=== PATIENT | male | born 1960 | race Hispanic/Latino ===

== ENCOUNTER 2019-07-31 17:09 | Emergency (ER) | payer MEDICAID, OTHER ==
[2019-07-31] MEDS ORDERED: SODIUM CHLORIDE 0.9% 500 ML 500 ML IV ONE (17:30)
--- NOTE | 2019-07-31 18:09 | XRay Report ---
CHEST 1 VIEW INDICATION: possible Sepsis. COMPARISON: None. FINDINGS: Support devices: Right subclavian port is in expected position. Heart: Normal. Lungs/Pleura: Lungs are hyperlucent consistent with emphysematous change. Ill-defined left suprahilar density is of uncertain chronicity. No significant effusion, no pneumothorax. IMPRESSION: 1. Ill-defined suprahilar left upper lung opacity is nonspecific, this could be due to pneumonia. Rad iographic follow-up is recommended. Signer Name: Juvenal Flower MD Signed: 07/31/2019 6:04 PM Workstation Name: [id number]
[2019-07-31 19:24] LABS: Basophils # (Auto) 0.1 K/mm3 (0.0-0.1); Basophils % (Auto) 0.6 % (0.0-1.8); Eosinophils # (Auto) 0.3 K/mm3 (0.0-0.4); Eosinophils % (Auto) 3.3 % (0.0-4.3); Hematocrit 35.1 % (35.5-45.6); Hemoglobin 11.8 gm/dl (11.8-15.2); Lymphocytes # (Auto) 0.9 K/mm3 (1.2-5.4); Lymphocytes % (Auto) 8.3 % (13.4-35.0); Mean Corpuscular HGB Conc 34 % (32-34); Mean Corpuscular Volume 89 fl (84-94); Monocytes # (Auto) 0.7 K/mm3 (0.0-0.8); Platelet Count 149 K/mm3 (140-440); Red Blood Count 3.95 M/mm3 (3.65-5.03); Red Cell Distribution Width 14.4 % (13.2-15.2)
[2019-07-31 19:39] LABS: INR 1.69 (0.87-1.13)
[2019-07-31 19:43] LABS: Alanine Aminotransferase 13 units/L (7-56); Albumin 3.7 g/dL (3.9-5); BUN/Creatinine Ratio 12; Blood Urea Nitrogen 12 mg/dL (9-20); Calcium 8.9 mg/dL (8.4-10.2); Hemolysis Index 3
[2019-07-31 19:52] LABS: Bacteria,Urine 1+ /HPF (Negative); Bilirubin,Urine NEG (Negative); Blood,Urine SM (Negative); Color,Urine Yellow (Yellow); Hyaline Casts,Urine 19 /LPF; Mucus,Urine 1+ /HPF; Protein,Urine <15 mg/dL mg/dL (Negative); Urobilinogen,Urine < 2.0 mg/dL (<2.0)
[2019-07-31] MEDS ORDERED: POTASSIUM CHLORIDE ER 20 MEQ TAB PO ONE (19:55)
[2019-07-31] MEDS ORDERED: SODIUM CHLORIDE 0.9% 1000 ML 1,000 ML IV ONE (19:55)
--- NOTE | 2019-07-31 20:23 | Emergency Department Report ---
ED Fever HPI - General Chief Complaint: Fever Stated Complaint: FEVER/SHAKING Time Seen by Provider: 07/31/19 19:23 - History of Present Illness Initial Comments: Patient is a 58-year-old male who presents to emergency room with complaints of a subjective fever that began yesterday. He has associated chills, generalized body aches, nausea, shortness of breath, mild cough. Patient denies any rhinorrhea, vomiting, diarrhea, abdominal pain, unilateral lower extremity edema. Patient states he has a past medical history of lung cancer, COPD, A. fib on eliquis, hypertension. Patient uses 3 L of home oxygen. Patient states his lung cancer is in remission and he last had chemotherapy in October 2018 and he last had radiation in May 2018. He did not have any lung surgeries. He denies any sick contacts. ED Review of Systems ROS: Stated complaint: FEVER/SHAKING Other details as noted in HPI Comment: All other systems reviewed and negative ED Past Medical Hx - Past Medical History Hx Hypertension: Yes Hx Deep Vein Thrombosis: Yes Hx COPD: Yes - Surgical History Past Surgical History?: No - Social History Smoking Status: Never Smoker Substance Use Type: None - Medications Home Medications: Home Medications Medication Instructions Recorded Confirmed Last Taken Type Acetaminophen/Codeine [Tylenol 1 tab PO Q6H PRN #10 tab 07/31/19 Unknown Rx /Codeine # 3 tab] levoFLOXacin [Levaquin TAB] 500 mg PO DAILY 7 Days #7 tablet 07/31/19 Unknown Rx ED Physical Exam - General Limitations: No Limitations General appearance: alert, in no apparent distress - Head Head exam: Present: atraumatic, normocephalic - Eye Eye exam: Present: normal appearance - ENT ENT exam: Present: normal orophraynx, mucous membranes dry - Neck Neck exam: Present: full ROM. Absent: meningismus - Respiratory Respiratory exam: Present: normal lung sounds bilaterally. Absent: respiratory distress, wheezes, rales, rhonchi, stridor, chest wall tenderness, accessory muscle use, decreased breath sounds, prolonged expiratory - Cardiovascular Cardiovascular Exam: Present: regular rate, normal rhythm, normal heart sounds. Absent: systolic murmur, diastolic murmur, rubs, gallop - GI/Abdominal GI/Abdominal exam: Present: soft, normal bowel sounds. Absent: distended, tenderness, guarding, rebound, rigid - Back Exam Back exam: Present: normal inspection, full ROM. Absent: paraspinal tenderness, vertebral tenderness - Neurological Exam Neurological exam: Present: alert, oriented X3 - Psychiatric Psychiatric exam: Present: normal affect, normal mood - Skin Skin exam: Present: warm, dry ED Course Vital Signs 07/31/19 07/31/19 17:26 22:49 Temperature 97.8 F 98.6 F Pulse Rate 77 72 Respiratory 16 20 Rate Blood Pressure 108/58 Blood Pressure 107/61 [Right] O2 Sat by Pulse 95 98 Oximetry - Consultations Consultation #1: 07/31/19 22:[address] Adkins, fire support man who recommended admission 07/31/19 22:[address] Zayas, hospitalist who states pt does not meet admission requirements and will not be admitted to the hospital 07/31/19 22:40 Dr. Patel, ER attending evaluated pt at bedside and advised pt is stable for discharge and advised to place pt on levaquin 500 mg daily x 7 days and have pt follow up with his fire support man as an outpatient. ED Medical Decision Making - Lab Data Result diagrams: 07/31/19 18:13 07/31/19 18:13 Lab Results 07/31/19 07/31/19 07/31/19 Range/Units 18:13 18:13 18:13 WBC 10.2 (4.5-11.0) K/mm3 RBC 3.95 (3.65-5.03) M/mm3 Hgb 11.8 (11.8-15.2) gm/dl Hct 35.1 L (35.5-45.6) % MCV 89 (84-94) fl MCH 30 (28-32) pg MCHC 34 (32-34) % RDW 14.4 (13.2-15.2) % Plt Count 149 (140-440) K/mm3 Lymph % (Auto) 8.3 L (13.4-35.0) % [place] % (Auto) 7.0 (0.0-7.3) % Eos % (Auto) 3.3 (0.0-4.3) % Baso % (Auto) 0.6 (0.0-1.8) % Lymph # 0.9 L (1.2-5.4) K/mm3 [place] # 0.7 (0.0-0.8) K/mm3 Eos # 0.3 (0.0-0.4) K/mm3 Baso # 0.1 (0.0-0.1) K/mm3 Seg Neutrophils % 80.8 H (40.0-70.0) % Seg Neutrophils # 8.2 H (1.8-7.7) K/mm3 PT 19.5 H (12.2-14.9) Sec. INR 1.69 H (0.87-1.13) VBG pH (7.320-7.420) Sodium 138 (137-145) mmol/L Potassium 3.0 L (3.6-5.0) mmol/L Chloride 96.5 L (98-107) mmol/L Carbon Dioxide 29 (22-30) mmol/L Anion Gap 16 mmol/L BUN 12 (9-20) mg/dL Creatinine 1.0 (0.8-1.5) mg/dL Estimated GFR > 60 ml/min BUN/Creatinine Ratio 12 % Glucose 103 H (75-100) mg/dL Lactic Acid (0.7-2.0) mmol/L Calcium 8.9 (8.4-10.2) mg/dL Phosphorus (2.5-4.5) mg/dL Magnesium (1.7-2.3) mg/dL Total Bilirubin 0.70 (0.1-1.2) mg/dL AST 22 (5-40) units/L ALT 13 (7-56) units/L Alkaline Phosphatase 108 (35-129) units/L Total Protein 6.9 (6.3-8.2) g/dL Albumin 3.7 L (3.9-5) g/dL Albumin/Globulin Ratio 1.2 % Urine Color (Yellow) Urine Turbidity (Clear) Urine pH (5.0-7.0) Ur Specific [place] (1.003-1.030) Urine Protein (Negative) mg/dL Urine Glucose (UA) (Negative) mg/dL Urine Ketones (Negative) mg/dL Urine Blood (Negative) Urine Nitrite (Negative) Urine Bilirubin (Negative) Urine Urobilinogen (<2.0) mg/dL Ur Leukocyte Esterase (Negative) Urine WBC (Auto) (0.0-6.0) /HPF Urine RBC (Auto) (0.0-6.0) /HPF Urine Bacteria (Auto) (Negative) /HPF Hyaline Casts /LPF Urine Mucus /HPF Influenza A (Rapid) (Negative) Influenza B (Rapid) (Negative) 07/31/19 07/31/19 07/31/19 Range/Units 18:13 18:13 19:37 WBC (4.5-11.0) K/mm3 RBC (3.65-5.03) M/mm3 Hgb (11.8-15.2) gm/dl Hct (35.5-45.6) % MCV (84-94) fl MCH (28-32) pg MCHC (32-34) % RDW (13.2-15.2) % Plt Count (140-440) K/mm3 Lymph % (Auto) (13.4-35.0) % [place] % (Auto) (0.0-7.3) % Eos % (Auto) (0.0-4.3) % Baso % (Auto) (0.0-1.8) % Lymph # (1.2-5.4) K/mm3 [place] # (0.0-0.8) K/mm3 Eos # (0.0-0.4) K/mm3 Baso # (0.0-0.1) K/mm3 Seg Neutrophils % (40.0-70.0) % Seg Neutrophils # (1.8-7.7) K/mm3 PT (12.2-14.9) Sec. INR (0.87-1.13) VBG pH 7.341 (7.320-7.420) Sodium (137-145) mmol/L Potassium (3.6-5.0) mmol/L Chloride (98-107) mmol/L Carbon Dioxide (22-30) mmol/L Anion Gap mmol/L BUN (9-20) mg/dL Creatinine (0.8-1.5) mg/dL Estimated GFR ml/min BUN/Creatinine Ratio % Glucose (75-100) mg/dL Lactic Acid 1.50 (0.7-2.0) mmol/L Calcium (8.4-10.2) mg/dL Phosphorus (2.5-4.5) mg/dL Magnesium (1.7-2.3) mg/dL Total Bilirubin (0.1-1.2) mg/dL AST (5-40) units/L ALT (7-56) units/L Alkaline Phosphatase (35-129) units/L Total Protein (6.3-8.2) g/dL Albumin (3.9-5) g/dL Albumin/Globulin Ratio % Urine Color Yellow (Yellow) Urine Turbidity Clear (Clear) Urine pH 5.0 (5.0-7.0) Ur Specific [place] 1.011 (1.003-1.030) Urine Protein <15 mg/dl (Negative) mg/dL Urine Glucose (UA) Neg (Negative) mg/dL Urine Ketones Neg (Negative) mg/dL Urine Blood Sm (Negative) Urine Nitrite Neg (Negative) Urine Bilirubin Neg (Negative) Urine Urobilinogen < 2.0 (<2.0) mg/dL Ur Leukocyte Esterase Neg (Negative) Urine WBC (Auto) 2.0 (0.0-6.0) /HPF Urine RBC (Auto) 4.0 (0.0-6.0) /HPF Urine Bacteria (Auto) 1+ (Negative) /HPF Hyaline Casts 19 /LPF Urine Mucus 1+ /HPF Influenza A (Rapid) (Negative) Influenza B (Rapid) (Negative) 07/31/19 07/31/19 Range/Units 19:55 Unknown WBC (4.5-11.0) K/mm3 RBC (3.65-5.03) M/mm3 Hgb (11.8-15.2) gm/dl Hct (35.5-45.6) % MCV (84-94) fl MCH (28-32) pg MCHC (32-34) % RDW (13.2-15.2) % Plt Count (140-440) K/mm3 Lymph % (Auto) (13.4-35.0) % [place] % (Auto) (0.0-7.3) % Eos % (Auto) (0.0-4.3) % Baso % (Auto) (0.0-1.8) % Lymph # (1.2-5.4) K/mm3 [place] # (0.0-0.8) K/mm3 Eos # (0.0-0.4) K/mm3 Baso # (0.0-0.1) K/mm3 Seg Neutrophils % (40.0-70.0) % Seg Neutrophils # (1.8-7.7) K/mm3 PT (12.2-14.9) Sec. INR (0.87-1.13) VBG pH (7.320-7.420) Sodium (137-145) mmol/L Potassium (3.6-5.0) mmol/L Chloride (98-107) mmol/L Carbon Dioxide (22-30) mmol/L Anion Gap mmol/L BUN (9-20) mg/dL Creatinine (0.8-1.5) mg/dL Estimated GFR ml/min BUN/Creatinine Ratio % Glucose (75-100) mg/dL Lactic Acid (0.7-2.0) mmol/L Calcium (8.4-10.2) mg/dL Phosphorus 3.40 (2.5-4.5) mg/dL Magnesium 1.40 L (1.7-2.3) mg/dL Total Bilirubin (0.1-1.2) mg/dL AST (5-40) units/L ALT (7-56) units/L Alkaline Phosphatase (35-129) units/L Total Protein (6.3-8.2) g/dL Albumin (3.9-5) g/dL Albumin/Globulin Ratio % Urine Color (Yellow) Urine Turbidity (Clear) Urine pH (5.0-7.0) Ur Specific [place] (1.003-1.030) Urine Protein (Negative) mg/dL Urine Glucose (UA) (Negative) mg/dL Urine Ketones (Negative) mg/dL Urine Blood (Negative) Urine Nitrite (Negative) Urine Bilirubin (Negative) Urine Urobilinogen (<2.0) mg/dL Ur Leukocyte Esterase (Negative) Urine WBC (Auto) (0.0-6.0) /HPF Urine RBC (Auto) (0.0-6.0) /HPF Urine Bacteria (Auto) (Negative) /HPF Hyaline Casts /LPF Urine Mucus /HPF Influenza A (Rapid) Negative (Negative) Influenza B (Rapid) Negative (Negative) - Radiology Data Radiology results: report reviewed CHEST 1 VIEW INDICATION: possible Sepsis. COMPARISON: None. FINDINGS: Support devices: Right subclavian port is in expected position. Heart: Normal. Lungs/Pleura: Lungs are hyperlucent consistent with emphysematous change. Ill- defined left suprahilar density is of uncertain chronicity. No significant effusion, no pneumothorax. IMPRESSION: 1. Ill-defined suprahilar left upper lung opacity is nonspecific, this could be due to pneumonia. Radiographic follow-up is recommended. Signer Name: Juvenal Flower MD Signed: 07/31/2019 6:04 PM Workstation Name: [id number] Transcribed By: ALEXEY Dictated By: Juvenal Flower MD Electronically Authenticated By: Juvenal Flower MD Signed Date/Time: 07/31/191803 CT CHEST WITH CONTRAST INDICATION / CLINICAL INFORMATION: fever, SOB, hx of lung CA. TECHNIQUE: Axial CT images were obtained through the chest after 100 cc Omnipaque [address] scans at this location are performed using CT dose reduction for ALARA by means of automated exposure control. COMPARISON: None available. FINDINGS: HEART: No significant abnormality. THORACIC AORTA: No significant abnormality. MEDIASTINUM and KAVIN: No significant abnormality. LUNGS: Mild pneumonitis and bronchiectasis within the central aspect of left upper lobe and superior aspect of left lower lobes likely secondary to XRT therapy. Probable thick linear scarring left upper lobe, however, neoplasm cannot be excluded measuring 2.9 x 1.0 cm in AP by transverse diameter images 52 and 53. Moderate pulmonary emphysema. Biapical pleural parenchymal scarring. PLEURA: No significant pleural effusion. No pneumothorax. ADDITIONAL FINDINGS: Right internal jugular Port-A-Cath has tip in SVC UPPER ABDOMEN: Several mildly enlarged left periaortic retroperitoneal nodes, incompletely visualized. Moderate hepatic steatosis. Simple 2.5 cm cyst posterior hepatic segment. Small hiatal hernia. SKELETAL SYSTEM: Probable acute T8 compression fracture with fracture line/cleft noted. No skeletal metastases. IMPRESSION: 1. Probable XRT pneumonitis central aspect of left upper and superior segment left lower lobes. 2. Moderate pulmonary emphysema. 3. Left retroperitoneal adenopathy. 4. T8 acute compression fracture. Signer Name: Scott Carreno MD Signed: 07/31/2019 8:45 PM Workstation Name: [id number] Transcribed By: HUGH Dictated By: Scott Carreno MD Electronically Authenticated By: Scott Carreno MD Signed Date/Time: 07/31/192044 - Medical Decision Making Patient is a 58-year-old male who presents to emergency room with complaints of a subjective fever that began yesterday. He has associated chills, generalized body aches, nausea, shortness of breath, mild cough. Patient denies any rhinorrhea, vomiting, diarrhea, abdominal pain, unilateral lower extremity edema. Patient states he has a past medical history of lung cancer, COPD, A. fib on eliquis, hypertension. Patient uses 3 L of home oxygen. Patient states his lung cancer is in remission and he last had chemotherapy in October 2018 and he last had radiation in May 2018. He did not have any lung surgeries. He denies any sick contacts. vitals are normal. lung are clear to auscultation, no w/r/r. pt is afebrile. no leukocytosis on labs. labs significant for hypokalemia and hypomagnesia, both were repleted while in the ED. CXR: 1. Ill-defined suprahilar left upper lung opacity is nonspecific, this could be due to pneumonia. Radiographic follow-up is recommended. CT chest performed and shows 1. Probable XRT pneumonitis central aspect of left upper and superior segment left lower lobes. 2. Moderate pulmonary emphysema. 3. Left retroperit lozano adenopathy. 4. T8 acute compression fracture. discussed all findings with pt and answered all questions. pt given 1L of NS, ceftriaxone, and azithromycin. Discussed case with Dr. Adkins, fire support man who recommended admission. discussed case with Dr. Zayas, hospitalist who states pt does not meet admission requirements and will not be admitted to the hospital. Dr. Patel, ER attending evaluated pt at bedside and advised pt is stable for discharge and advised to place pt on levaquin 500 mg daily x 7 days and have pt follow up with his fire support man as an outpatient. pt given prescription for levaquin and pain medication. advised pt to please take medication as prescribed. Do not drive or operate machinery while taking pain medication. Please follow-up with your fire support man Dr. Adkins and an orthopedic doctor in the next 2-3 days. Return to the emergency room immediately for any new or worsening symptoms. - Differential Diagnosis lung CA, PNA, influenza, COPD, CHF, empyema, URI, bronchitis Critical care attestation.: If time is entered above; I have spent that time in minutes in the direct care of this critically ill patient, excluding procedure time. ED Disposition Clinical Impression: Pneumonitis, Hypokalemia, Hypomagnesemia, Chills, SOB (shortness of breath), Retroperitoneal lymphadenopathy, Community acquired bacterial pneumonia Pulmonary emphysema Qualifiers: Emphysema type: unilateral Qualified Code(s): J43.0 - Unilateral pulmonary emphysema [MacLeod's syndrome] Compression fracture of T8 vertebra Qualifiers: Encounter type: initial encounter Qualified Code(s): S22.060A - Wedge compression fracture of T7-T8 vertebra, initial encounter for closed fracture Disposition: TO HOME OR SELFCARE Is pt being admited?: No Does the pt Need Aspirin: No Condition: Stable Instructions: Vertebral Compression Fracture (ED), Chronic Obstructive Pulmonary Disease (ED), Community-acquired Pneumonia (ED) Additional Instructions: Please take medication as prescribed. Do not drive or operate machinery while taking pain medication. Please follow-up with your fire support man Dr. Adkins and an orthopedic doctor in the next 2-3 days. Return to the emergency room im mediately for any new or worsening symptoms. Prescriptions: levoFLOXacin [Levaquin TAB] 500 mg PO DAILY 7 Days #7 tablet Acetaminophen/Codeine [Tylenol /Codeine # 3 tab] 1 tab PO Q6H PRN #10 tab PRN Reason: Pain , Severe (7-10) Referrals: WOO ADKINS MD [Staff Physician] - 2-[address] [facility] [Provider Group] - 2-3 Days Time of Disposition: 22:49 Print Language: TURKISH
--- NOTE | 2019-07-31 20:49 | Cat Scan Report ---
CT CHEST WITH CONTRAST INDICATION / CLINICAL INFORMATION: fever, SOB, hx of lung CA. TECHNIQUE: Axial CT images were obtained through the chest after 100 cc Omnipaque [address] scans at this location are performed using CT dose reduction for ALARA by means of automated exposure contr ol. COMPARISON: None available. FINDINGS: HEART: No significant abnormality. THORACIC AORTA: No significant abnormality. MEDIASTINUM and KAVIN: No significant abnormality. LUNGS: Mild pneumonitis and bronchiectasis within the central aspect of left upper lobe and superior aspect of left lower lobes likely secondary to XRT therapy. Probable thick linear scarring left upper lobe, however, neoplasm cannot be excluded measuring 2.9 x 1.0 cm in AP by transverse diameter image s 52 and 53. Moderate pulmonary emphysema. Biapical pleural parenchymal scarring. PLEURA: No significant pleural effusion. No pneumothorax. ADDITIONAL FINDINGS: Right internal jugular Port-A-Cath has tip in SVC UPPER ABDOMEN: Several mildly enlarged left periaortic retroperitoneal nodes, incompletely visualized . Moderate hepatic steatosis. Simple 2.5 cm cyst posterior hepatic segment. Small hiatal hernia. SKELETAL SYSTEM: Probable acute T8 compression fracture with fracture line/cleft noted. No skeletal m etastases. IMPRESSION: 1. Probable XRT pneumonitis central aspect of left upper and superior segment left lower lobes. 2. Moderate pulmonary emphysema. 3. Left retroperitoneal adenopathy. 4. T8 acute compression fracture. Signer Name: Scott Carreno MD Signed: 07/31/2019 8:45 PM Workstation Name: [id number]
[2019-07-31] MEDS ORDERED: MAGNESIUM OXIDE 400 MG TAB PO ONE (21:00)
[2019-07-31] MEDS ORDERED: cefTRIAXone/NS 1 GM/50 ML 1 GM/50 ML BAG IV ONE (22:16)
[2019-07-31] MEDS ORDERED: AZITHROMYCIN 250 MG TAB PO ONE (22:16)
[2019-07-31 22:50] VITALS: BP 107/61
[2019-08-01] MEDS ORDERED: MAGNESIUM OXIDE 400 MG TAB PO ONE (21:00)
== END 2019-07-31 23:37 | disposition home or self-care (01) ==
LOC: ED 17:09
DX: S22.060A Wedge compression fracture of T7-T8 vertebra, initial encounter for closed fracture (principal); J43.0 Unilateral pulmonary emphysema [MacLeod's syndrome]; E83.42 Hypomagnesemia; E87.6 Hypokalemia; J15.8 Pneumonia due to other specified bacteria; R59.0 Localized enlarged lymph nodes; I10 Essential (primary) hypertension; Z86.718 Personal history of other venous thrombosis and embolism; Z79.01 Long term (current) use of anticoagulants; Z79.899 Other long term (current) drug therapy; X58.XXXA Exposure to other specified factors, initial encounter; Y93.89 Activity, other specified; Y92.89 Other specified places as the place of occurrence of the external cause; Y99.8 Other external cause status
CPT/HCPCS: 36415; 71045; 71260; 80053; 81001; 82140; 82805; 83735; 84100; 85025; 85610; 87040; 87086; 87400; 96365; 99285; J0696; J7030; Q9967

== ENCOUNTER 2019-08-10 18:31 | Emergency (ER) | payer MEDICAID ==
--- NOTE | 2019-08-10 19:48 | Event Note ---
ED Screening Note Date of service: 08/10/19 Time: 19:48 ED Screening Note: REPORTS CAN[facility]ER [facility] LUNG CANCER AND . CHEMO 11/2018 RADIATION 2019. hAS pcp AND ACCESS TO CARE. lle SWOLLEN AND rt LOWER EXTT SWOLLEN. lt >rt. FEET WITH REDNESS AND PUS. lEGS AND FEET PAINFUL. NOTED FEET WITH FUNGAL INFECTION WITH SUPERINPOSE BACTERIAL INFECTION. onychomycosis NOTED TO TOE NAILS. PALPABLE PULSES.. ble EDEMA LT.L WITH EXZEMA AND MULTIPLE ABRASIONS. This initial assessment/diagnostic orders/clinical plan/treatment(s) is/are subject to change based on patients health status, clinical progression and re- assessment by fellow clinical providers in the ED. Further treatment and workup at subsequent clinical providers discretion. Patient/guardian urged not to elope from the ED as their condition may be serious if not clinically assessed and managed. Initial orders include: XR LABS
--- NOTE | 2019-08-10 21:13 | XRay Report ---
BILATERAL FEET 6 VIEWS TOTAL INDICATION / CLINICAL INFORMATION: INFECTION WITH REDNESS/SWELLING AND DRAINAGE. COMPARISON: None available. FINDINGS: Right foot: Moderate dorsal soft tissue swelling is seen within the right foot without cortical destr uction, ulcer or soft tissue gas to suggest osteomyelitis. Moderate degenerative arthrosis is seen wi thin the first MTP joint. Left foot: Moderate diffuse soft tissue swelling is seen within the left ankle and dorsal aspect of f oot without cortical destruction, soft tissue gas or ulcer to suggest osteomyelitis. Moderate degener ative arthrosis is seen within the first MTP joint and PIP and DIP joints of left foot. Signer Name: Scott Carreno MD Signed: 08/10/2019 9:08 PM Workstation Name: [id number]
[2019-08-10 21:21] LABS: Basophils # (Auto) 0.1 K/mm3 (0.0-0.1); Basophils % (Auto) 0.7 % (0.0-1.8); Eosinophils # (Auto) 1.2 K/mm3 (0.0-0.4); Eosinophils % (Auto) 12.5 % (0.0-4.3); Hemoglobin 12.5 gm/dl (11.8-15.2); Lymphocytes # (Auto) 1.2 K/mm3 (1.2-5.4); Lymphocytes % (Auto) 12.1 % (13.4-35.0); Mean Corpuscular HGB Conc 34 % (32-34); Mean Corpuscular Volume 89 fl (84-94); Monocytes # (Auto) 0.7 K/mm3 (0.0-0.8); Platelet Count 208 K/mm3 (140-440); Red Blood Count 4.17 M/mm3 (3.65-5.03); Red Cell Distribution Width 14.6 % (13.2-15.2)
[2019-08-10 21:44] LABS: Alanine Aminotransferase 11 units/L (7-56); Albumin 3.4 g/dL (3.9-5); BUN/Creatinine Ratio 9; Blood Urea Nitrogen 7 mg/dL (9-20); Hemolysis Index 20
[2019-08-10] MEDS ORDERED: cephALEXin 500 MG CAP PO ONE (22:16)
--- NOTE | 2019-08-10 22:21 | Emergency Department Report ---
HPI - General Chief Complaint: Extremity Injury, Lower Time Seen by Provider: 08/10/19 19:48 - HPI HPI: 58-year-old male presents to the emergency department with a complaint of a two-week history of a rash to the bilateral lower extremities and upper extremities. It is itching and the patient has been scratching himself constantly. He also complains of some redness and a rash to the top of his bilateral feet that have been draining some "white stuff." This also has been going on for the past 2 weeks. He has not taken anything for her symptoms prior to presentation. The patient has bilateral lower extremity swelling with left greater than right. However he has a history of lymphedema and says that this has been going on since 2002. He says that the swelling goes down when he goes to bed and increases when he wakes up. He has recently been checked out for DVT, at , but the venous Doppler ultrasound was negative. Also, the patient is on Eliquis and has been taking it compliantly. He has a past medical history of non-Hodgkin's lymphoma from many years ago, and he also was diagnosed and treated for lung cancer about one year ago. His primary care physician is Dr. Walker. ED Past Medical Hx - Past Medical History Previous Medical History?: Yes Hx Hypertension: Yes Hx Deep Vein Thrombosis: Yes Hx of Cancer: Yes (Hodgkins, Lung) Hx COPD: Yes (Oxygen dependent) Additional medical history: Lymphadema left leg - Surgical History Past Surgical History?: Yes Additional Surgical History: Lymph node removal - Social History Smoking Status: Never Smoker Substance Use Type: None - Medications Home Medications: Home Medications Medication Instructions Recorded Confirmed Last Taken Type Acetaminophen/Codeine [Tylenol 1 tab PO Q6H PRN #10 tab 07/31/19 Unknown Rx /Codeine # 3 tab] levoFLOXacin [Levaquin TAB] 500 mg PO DAILY 7 Days #7 tablet 07/31/19 Unknown Rx Permethrin 5% [Acticin 5% CREAM] 1 applicatio TP ONCE #1 tube 08/10/19 Unknown Rx cephALEXin [Keflex] 1,000 mg PO Q12HR #28 cap 08/10/19 Unknown Rx ED Review of Systems ROS: Stated complaint: LEG PAIN Other details as noted in HPI Comment: All other systems reviewed and negative Constitutional: denies: chills, fever Respiratory: denies: cough, shortness of breath Cardiovascular: edema (chronic). denies: chest pain Gastrointestinal: denies: abdominal pain, vomiting Genitourinary: denies: dysuria, discharge Musculoskeletal: denies: back pain, arthralgia Skin: rash, lesions, pruritus Neurological: denies: headache, numbness, paresthesias Physical Exam - Physical Exam Vital Signs: Vital Signs 08/10/19 20:05 Temperature 98.5 F Pulse Rate 98 H Respiratory 18 Rate Blood Pressure 126/76 O2 Sat by Pulse 97 Oximetry Physical Exam: GENERAL: The patient is well-developed well-nourished. HENT: Normocephalic. Atraumatic. Patient has moist mucous membranes. EYES: Extraocular motions are intact. NECK: Supple. Trachea is midline. CHEST/LUNGS: Clear to auscultation. There is no respiratory distress noted. HEART/CARDIOVASCULAR: Regular. There is no tachycardia. There is no murmur. ABDOMEN: Abdomen is soft, nontender. Patient has normal bowel sounds. There is no abdominal distention. SKIN: Patient has some erythema to the bilateral dorsal feet as well as the anterior left tib-fib. There are multiple areas of excoriations and there is some whitish yellow crusting to the dorsum of the feet. The patient has some type of rash to the bilateral lower extremity's and upper extremities that appear as if they were previously multiple small papular lesions but they have all been excoriated down to small little ulcerations. These areas do not have any bleeding, weeping, drainage. Patient has bilateral lower extremity lymphedema with left greater than right. NEURO: The patient is awake, alert, and oriented. The patient is cooperative. The patient has no focal neurologic deficits. Normal speech. MUSCULOSKELETAL: There is no tenderness or deformity. There is no evidence of acute injury. ED Course Vital Signs 08/10/19 20:05 Temperature 98.5 F Pulse Rate 98 H Respiratory 18 Rate Blood Pressure 126/76 O2 Sat by Pulse 97 Oximetry ED Medical Decision Making - Lab Data Result diagrams: 08/10/19 21:06 08/10/19 21:06 - Radiology Data Radiology results: report reviewed BILATERAL FEET 6 VIEWS TOTAL INDICATION / CLINICAL INFORMATION: INFECTION WITH REDNESS/SWELLING AND DRAINAGE. COMPARISON: None available. FINDINGS: Right foot: Moderate dorsal soft tissue swelling is seen within the right foot without cortical destruction, ulcer or soft tissue gas to suggest osteomyelitis. Moderate degenerative arthrosis is seen within the first MTP joint. Left foot: Moderate diffuse soft tissue swelling is seen within the left ankle and dorsal aspect of foot without cortical destruction, soft tissue gas or ulcer to suggest osteomyelitis. Moderate degenerative arthrosis is seen within the first MTP joint and PIP and DIP joints of left foot. - Medical Decision Making Patient presents with the complaint of some rashes. He has a 2 week history of some redness with some drainage and crusting to the bilateral dorsum of his feet. There is no warmth or fluctuance but there is erythema and this rash with excoriations. The patient also has a rash that goes up both of his legs, both arms. It is hard to identify this rash as the patient has scratched and excoriated the rash and/or lesions down to small ulcerations and eschars. It sort of has an appearance of bed bugs or some type of insect bite. The patient and his say that they have an issue with their dogs having fleas and they have many pets in the house. Some of them sleep with the patient and his bed. The sleeps in a different bed "because of the fleas." The patient's labs have been unremarkable including no leukocytosis or leukopenia. Vital signs stable throughout his ED course including being afeb rile. The patient will be treated with Keflex and he has also been given a precaution for permethrin. It does not necessarily have the scabies or intertriginous rash in appearance, but it does also affect his flexor surfaces and is in the differential for the etiology of the rash. He has been given a referral for dermatology and instructed to follow-up with primary care. He will return to the ER with any worsening of his symptoms or any acute distress. The patient has a history of lymphedema and admits that he has leg swelling since 2002. He also had a recent negative venous Doppler ultrasound for DVT. Also, the patient is on Eliquis and says he is compliant with the medication. - Differential Diagnosis scabies, bed bugs, dermatitis, cellulitis Critical Care Time: No Critical care attestation.: If time is entered above; I have spent that time in minutes in the direct care of this critically ill patient, excluding procedure time. ED Disposition Clinical Impression: Rash and other nonspecific skin eruption, Lymphedema, Cellulitis of both feet Disposition: DC-01 TO HOME OR SELFCARE Is pt being admited?: No Condition: Stable Instructions: Cellulitis (ED), Acute Rash (ED) Additional Instructions: Please follow-up with your primary care physician in the next few days. I am also giving you a referral for a local charge authorizer, Dr. Barton, to follow up regarding Your rashes. Please check your bed for bed bugs. Change your clothes and your sheets and wash them in hot water. It is recommended to have your dogs/pets sleeping and your bed, especially if they are known to have fleas. Return to the emergency Department with any worsening of your symptoms or any acute distress. Prescriptions: Permethrin 5% [Acticin 5% CREAM] 1 applicatio TP ONCE #1 tube cephALEXin [Keflex] 1,000 mg PO Q12HR #28 cap Referrals: AIME BARTON MD [Staff Physician] - 3-5 Days ADRIENNE WALKER MD [Staff Physician] - 3-5 Days Time of Disposition: 22:25
[2019-08-10 22:45] VITALS: BP 130/67
== END 2019-08-10 22:45 | disposition home or self-care (01) ==
LOC: ED 18:31
DX: L03.116 Cellulitis of left lower limb (principal); L03.115 Cellulitis of right lower limb; I89.0 Lymphedema, not elsewhere classified; R21 Rash and other nonspecific skin eruption; I10 Essential (primary) hypertension; Z86.718 Personal history of other venous thrombosis and embolism; Z85.118 Personal history of other malignant neoplasm of bronchus and lung
CPT/HCPCS: 36415; 80053; 83880; 85025